=== PATIENT | male | born 1995 | race Caucasian/White ===

== ENCOUNTER → 2018-11-27 | Emergency (ER) | payer SELFPAY ==
[~2018-11-27] VITALS: Ht 185.4 cm; Wt 57.0 kg
[~2018-11-27] MED LIST: levetiracetam inj 1,000 MG in normal saline 100ml IV soln 90 ML IV ONE; normal saline 1000ml 1,000 ML IV ONE
--- NOTE | 2018-11-27 15:43 | NUR ---
[facility] STROKE ALERT CALLED [facility] TEAM [id number] Addendum: 11/27/18 at 1544 by LUIGI TIME OF OSET 1400
--- NOTE | 2018-11-27 15:44 | NUR ---
STROKE NURSE CALLED [id number]
--- NOTE | 2018-11-27 15:50 | NUR ---
TO ER BED 7 FOR STROKE ALERT, PT RETURNING FROM CT SCAN. HE REPORTS BILAT. VISION LOSS AT 1315 FOLLOWING EPISODE OF "BLACKING OUT" NO LOSS OF CONSCIENCNESS. PT REPORTS LOTS OF STRESS, ALMOST HOMELESS, NOT ALLOWED TO SEE SON, JUST OF OF CORRECTION, DENIES USE OF DRUGS OF ALCOHOL. HE HAS SLOW, QUIET SPEECH DIFFICULTY KEEPING EYES OPEN. SEEING ONLY SHADOWS BILTAT. IS NOT RESPONDING TO VISUAL THREAT.
[2018-11-27 15:54] LABS: BASOPHILS # (AUTO) 0.1 X10'3 (0-0.2); BASOPHILS % (AUTO) 0.8 % (0-1); EOSINOPHILS # (AUTO) 0.2 X10'3 (0-0.9); EOSINOPHILS % (AUTO) 3.7 % (0-6); HEMATOCRIT 44.9 % (42.0-52.0); HEMOGLOBIN 15.1 g/dl (14.0-17.9); LYMPHOCYTES # (AUTO) 2.1 X10'3 (1.1-4.8); LYMPHOCYTES % (AUTO) 31.2 % (21-51); MEAN CORPUSCULAR HEMOGLOBIN 29.9 PG (27.0-31.0); MEAN CORPUSCULAR HGB CONC 33.7 % (33.0-36.5); MEAN PLATELET VOLUME 7.5 FL (7.4-10.4); MONOCYTES # (AUTO) 0.6 X10'3 (0-0.9); MONOCYTES % (AUTO) 8.9 % (2-12); NEUTROPHILS # (AUTO) 3.7 X10'3 (1.8-7.7); NEUTROPHILS % (AUTO) 55.4 % (42-75); PLATELET COUNT 219 X10'3 (140-440); RED BLOOD COUNT 5.04 X10'6 (4.70-6.10); RED CELL DISTRIBUTION WIDTH 12.7 % (11.5-14.5); WHITE BLOOD COUNT 6.7 X10'3 (4.5-11.0)
[2018-11-27 16:09] LABS: ALANINE AMINOTRANSFERASE 32 U/L (12-78); ALBUMIN 3.9 G/DL (3.4-5.0); ALBUMIN/GLOBULIN RATIO 1.3 (1.1-1.5); ALKALINE PHOSPHATASE 49 IU/L (46-116); ANION GAP 8 (8-16); ASPARTATE AMINO TRANSFERASE 23 U/L (10-37); BILIRUBIN,TOTAL 0.3 MG/DL (0.1-1.0); BLOOD UREA NITROGEN 13 MG/DL (7-18); BUN/CREATININE RATIO 17.1 (5.4-32.0); CALCIUM 8.9 MG/DL (8.5-10.1); CHLORIDE 102 MMOL/L (99-107); CREATININE 0.76 MG/DL (0.60-1.10); GLUCOSE 82 MG/DL (70-104); POTASSIUM 4.1 MMOL/L (3.5-5.1); SODIUM 141 MMOL/L (135-145); TOTAL CARBON DIOXIDE 31.2 MMOL/L (24-32); eGFR > 90 ML/MIN
[2018-11-27 16:11] LABS: TROPONIN I < 0.04 NG/ML (0.0-0.05)
--- NOTE | 2018-11-27 16:11 | NUR ---
TELE CONSULT STARTED 1610 NEURO
--- NOTE | 2018-11-27 16:20 | NUR ---
TELEMEDICINE CONSULT WITH SOC Julieta DICKINSON. PT CONSENTS TO TELEMEDICINE FOR EVALUATION. PT IS SOMEWHAT EVASIVE AND UNCOOPERATIVE IN EXAM, NEEDS FREQUENT CALMING AND REASSURING. DR. DICKINSON EXPLAINS RISK AND BENEFITS OF TX IF THIS IS A STROKE, PT REFUSES AND STATES HE WANTS TO SIGN HIMSELF OUT. DR. SMALLS AWARE.
[2018-11-27 16:24] LABS: PARTIAL THROMBOPLASTIN TIME 30 SECONDS (22-32); PROTHROMBIN TIME 10.3 SECONDS (9.0-12.0)
--- NOTE | 2018-11-27 16:24 | NUR ---
NEURO TELE IN PROGRESS WITH DR. DICKINSON.
[2018-11-27 16:28] VITALS: BP 131/83
--- NOTE | 2018-11-27 16:44 | NUR ---
dr. gomez will discuss with dr. hernandes regarding giving the keppra. hold keppra for now.
--- NOTE | 2018-11-27 16:55 | NUR ---
PT DRESSES HIMSELF, STATES VISION NOT IMPROVED BUT DOES FIND SHOES AND TIE THEM WITHOUT DIFFICULTY, WANTS IV REMOVED. COMPLETED WITHOUT DIFFICULTY. PT SIGNED HIMSELF OUT AMA, HIS GIRLFRIEND WALKS HIM OUT AND WILL DRIVE. INSTRUCTED TO SEEK CARE IF THIS VISUAL LOSS PRESISTS, EXPLAINED SERIOUSNESS OF A CONDITION LEFT UNTREATED. HE IS ADAMENT THAT HE IS CHECKING HIMSELF OUT.
== END | disposition left against medical advice (07) ==
LOC: ER 15:28
DX: H53.9 Unspecified visual disturbance (principal); F15.10 Other stimulant abuse, uncomplicated; F11.10 Opioid abuse, uncomplicated; Z87.01 Personal history of pneumonia (recurrent)
CPT/HCPCS: 36415; 70450; 71045; 80053; 84484; 85025; 85610; 85730; 93005; 96365; 99284; J1953; J7030

== ENCOUNTER 2021-09-22 12:34 | Emergency (ER) | payer MEDICAID ==
[~2021-09-22] VITALS: Ht 182.9 cm; Wt 72.7 kg
[2021-09-22 13:13] VITALS: BP 107/73
== END 2021-09-22 15:00 | disposition home or self-care (01) ==
LOC: ER 12:34
DX: F19.10 Other psychoactive substance abuse, uncomplicated (principal); M25.562 Pain in left knee; R07.89 Other chest pain; F15.90 Other stimulant use, unspecified, uncomplicated; F11.90 Opioid use, unspecified, uncomplicated
CPT/HCPCS: 71045; 73552; 73560; 99284